=== PATIENT | male | born 1980 | race Caucasian/White ===

== ENCOUNTER 2023-12-10 05:57 | Day surgery (SDC) | payer BC ==
[2023-12-06 08:51] VITALS: BMI 27.1
--- NOTE | 2023-12-09 14:27 | P.GSHP ---
History of Present Illness H&P Date: 12/09/23 43 yo male sent to our office from [place] with bilateral renal stones. He has passed previous stones. He has intermittent hematuria. He saw another urologist who made no recommendations. We discussed treatment optioins. He is interested in getting rid of his stones. He has an 8mm rlp stone and a 5 mm rmp stone. He comes for eswl right. - Constitutional Constitutional: Denies chills, Denies fever - EENT Eyes: denies blurred vision, denies pain Ears, nose, mouth and throat: Denies headache, Denies sore throat - Cardiovascular Cardiovascular: Denies chest pain, Denies shortness of breath - Respiratory Respiratory: Denies cough, Denies 7 - Gastrointestinal Gastrointestinal: Denies abdominal pain, Denies diarrhea, Denies nausea, Denies vomiting - Genitourinary (Female) Genitourinary: Denies dysuria, Denies hematuria - Genitourinary (Male) Genitourinary: Denies dysuria, Denies hematuria - Musculoskeletal Musculoskeletal: Denies myalgias - Integumentary Integumentary: Denies pruritus, Denies rash - Neurological Neurological: Denies numbness, Denies weakness - Psychiatric Psychiatric: Denies anxiety, Denies depression - Endocrine Endocrine: Denies fatigue, Denies weight change Past Medical History Additional Past Medical History / Comment(s): KIDNEY STONES History of Any Multi-Drug Resistant Organisms: None Reported Past Surgical History: Appendectomy, Orthopedic Surgery Additional Past Surgical History / Comment(s): LT ACL REPAIR Past Anesthesia/Blood Transfusion Reactions: No Reported Reaction Smoking Status: Never smoker - Past Family History Mother Family Medical History: No Reported History Medications and Allergies Home Medications Medication Instructions Recorded Confirmed Type No Known Home Medications 12/06/23 12/06/23 History Allergies Allergy/AdvReac Type Severity Reaction Status Date / Time Unable to Assess Allergy Verified 12/06/23 08:34 Surgical - Exam - General well developed, well nourished, no distress - Eyes normal ocular movement, no icteric - ENT no hearing loss, no congestion - Neck no masses, trachea midline - Respiratory normal respiratory effort, clear to auscultation - Abdomen Abdomen: soft, non tender, no guarding, no rigid, no rebound - Integumentary no rash, no abnormal pigmentation - Neurologic no disoriented, no combative - Psychiatric oriented to time, oriented to person, oriented to place, speech is normal, memory intact Results - Imaging CT scan - abdomen: report reviewed, image reviewed CT scan - pelvis: report reviewed, image reviewed Additional studies: Impression: Right renal stones Plan: Right eswl.
--- NOTE | 2023-12-10 06:26 | XR ---
EXAMINATION TYPE: XR KUB DATE OF EXAM: 12/10/2023 6:18 AM CLINICAL HISTORY: Kidney stones TECHNIQUE: Two supine KUB images of the abdomen are obtained. COMPARISON: None. FINDINGS: There is 6 to 7 mm calculus right kidney projecting at the L1 vertebral body level. No defi nitive left-sided nephrolithiasis. Left-sided tiny calcified pelvic phleboliths are seen. Overall nonobstructive bowel gas pattern. Visualized osseous structures are intact. IMPRESSION: As above.
[2023-12-10] MEDS: LACTATED RINGERS 1,000 ML IV SCH (07:07)
[2023-12-10 07:30] VITALS: TEMP 97
[2023-12-10] MEDS ORDERED: MIDAZOLAM 2 MG/2 ML VIAL ONE (07:30)
[2023-12-10] MEDS ORDERED: fentaNYL (PF) 50 MCG/ML 2 ML AMP ONE (07:30)
[2023-12-10] MEDS ORDERED: PROPOFOL 10 MG/ML 20 ML VIAL IV ONE (07:30)
[2023-12-10 08:36] VITALS: RESP 16
--- NOTE | 2023-12-10 08:40 | P.OP ---
Date of Procedure: 12/10/23 Preoperative Diagnosis: Right renal calculi Postoperative Diagnosis: Name Procedure(s) Performed: Right extracorporal shockwave lithotripsy (ESWL) Anesthesia: MAC Surgeon: Teddy Jeter Estimated Blood Loss (ml): 0 IV fluids (ml): 700 Pathology: none sent Condition: stable Disposition: PACU Indications for Procedure: Reece is a 43-year-old white male with bilateral renal calculi. He has passed stones in the past, and has recently experienced intermittent hematuria. Right side, he has an 8 mm right lower pole calculus and a 5 mm midpole calculus. He desires removal of the calculi and has chosen to proceed with ESWL. Operative Findings: No obvious stone fragmentation. Description of Procedure: The patient was taken to the operating room and placed on the Dornier Compact Delta II lithotripter in the supine position. The calculus was seen on biplanar fluoroscopy. Once the patient was properly positioned and sedated, lithotripsy was performed. The energy level was gradually increased per protocol, to an energy level of 5. After 200 shocks were administered, a 2 minute pause was instituted per protocol. A total of 2500 shocks were given at a rate of 80 shocks per minute. Fluoroscopy was utilized at a minimum to ensure proper positioning and determine the treatment status. The appearance of the calculus failed to change, suggesting fragmentation had not occurred. The patient to lerated the procedure well was taken to the recovery room in stable condition. Instructions were given to strain the urine, and the patient will follow-up within one week.
[2023-12-10] MEDS: HYDROcodone/APAP 5-325MG 1 EACH TAB PO ONE (08:46)
[2023-12-10] MEDS ORDERED: HYDROcodone/APAP 5-325MG 1 EACH TAB ONE (08:47)
[2023-12-10 09:10] VITALS: PULSE 53
[2023-12-10] MEDS ORDERED: hydrALAZINE HCL 20 MG/ML 1 ML VIAL ONE (09:10)
[2023-12-10] MEDS: hydrALAZINE HCL 20 MG/ML 1 ML VIAL IVP ONE (09:14)
[2023-12-10 09:43] VITALS: BP 186/105
[2023-12-10] MEDS ORDERED: KETOROLAC 15 MG/ML 1 ML VIAL ONE (09:46)
[2023-12-10] MEDS: KETOROLAC 15 MG/ML 1 ML VIAL IVP ONE (09:50)
== END 2023-12-10 10:12 | disposition home or self-care (01) ==
LOC: ORWHC2ENDO 05:57
PROVIDERS: ATTEND Urology
DX: N20.0 Calculus of kidney (principal); Z98.890 Other specified postprocedural states
CPT/HCPCS: 74018; 50590; J2250; J0360; J3010; J1885; J2704